=== PATIENT | female | born 2000 | race Caucasian/White ===

== ENCOUNTER → 2023-10-21 12:02 | Outpatient (BNVA) | payer BC, MEDICAID, SELFPAY | PROVIDERS: Visit Provider Obstetrics & Gynecology | DX: Z34.90 Encounter for supervision of normal pregnancy, unspecified, unspecified trimester | CPT/HCPCS: 82950; 84315 ==

== ENCOUNTER → 2023-10-28 13:19 | Outpatient (BNVA) | payer BC, MEDICAID, SELFPAY | PROVIDERS: Visit Provider Obstetrics & Gynecology | DX: Z34.93 Encounter for supervision of normal pregnancy, unspecified, third trimester (principal) | CPT/HCPCS: 76816 ==

== ENCOUNTER → 2023-12-15 07:45 | Outpatient (BNVA) | payer BC, MEDICAID, SELFPAY | PROVIDERS: Visit Provider Obstetrics & Gynecology | DX: Z34.90 Encounter for supervision of normal pregnancy, unspecified, unspecified trimester (principal) | CPT/HCPCS: 84315; 87081 ==

== ENCOUNTER 2024-01-03 05:05 | Inpatient (IN) | payer BC, MEDICAID, SELFPAY ==
[2024-01-03] VITALS (30 sets, daily range): BP systolic 91–137; BP diastolic 51–87; PULSE 53–101; RESP 16–18; TEMP 36.7–36.9; O2SAT 96; BMI 28.0
--- NOTE | 2024-01-03 05:10 | P.HP_ITS ---
Providers/Chief Complaint 2 Admitting Physician: Abdulaziz Day MD Primary MORTAR WORKER: Abdulaziz Day MD Primary Care Provider: Abdulaziz Day MD Chief Complaint: contractions HPI MORTAR WORKER History of Present Illness 23 y.o. EDC January 06, 2024 At 39 w 4 d Presented to L&D c/o painful uterine contractions No complications No bleeding, fluid leakage + active movements h/o x one, uncomplicated; 7 lbs 4 oz; male Present Details : 2 Para: 1 Labs Rubella: Non-Immune RPR: Negative GBS: Negative Medications/Allergies Home Medications Medication Instructions Recorded Confirmed Last Taken Type docosahexaenoic acid 200 mg 200 mg PO DAILY 09/25/23 01/03/24 01/02/24 History capsule ( DHA) Allergies Allergy/AdvReac Type Severity Reaction Status Date / Time No Known Allergies Allergy Verified 01/03/24 05:40 PFSH MORTAR WORKER 2 PFSH: Medical History Moderate tobacco use disorder Social History Smoking and tobacco/nicotine status: current every day tobacco/nicotine user Personal Safety: Do you feel safe at home: Yes Victim of physical abuse: No Victim of emotional abuse: No Victim of sexual abuse: No Would you like help information on resources?: No History History History 2 2 Term 1 0 Miscarriages/Ectopic 0 Living Children 1 Care SARAH Calculator 2 Estimated Delivery Date Method Current WG Current Estimate 01/06/24 LMP (Certain) 39w 6d Other Estimates 01/09/24 Ultrasound #1 39w 3d Vitals/I&O/Wt Last Vital Signs Temp 98.4 F 01/04/24 12:40 Pulse 79 01/04/24 12:40 Resp 17 01/04/24 12:40 BP 112/71 01/04/24 12:40 Pulse Ox 98 01/04/24 12:40 O2 Del Method Room Air 01/04/24 12:30 Weight last 48 hrs Weight 190 lb Physical Exam 2 Narrative: Weight 138 lbs; 5?2? VS normal General awake, alert Lungs: clear Cor: RRR Cervix: 5 cm / 75% / -2 Ext: no edema External monitor: regular RUST heart tracing good variability, + accelerations Data 01/04/24 02:00 Results Labs OB ([facility]): 2 Obstetrics US 10/28/23 Blood Type A Positive 01/03/24 Antibody Screen Negative 01/03/24 Hct 35.9 % (36-47) L 01/04/24 Hgb 11.70 g/dL (11.27-16.99) 01/04/24 Rho(D) Type Rh positive 01/03/24 Plt Count 244 10^3/cmm (157-399) 01/04/24 Glucose 1 Hr 50 gm 109 mg/dL (85-140) 10/21/23 A&P Assessment and plan (1) : 39 w 4 d Active labor Plan admit Fetus reassuring Expectant mx Qualifiers: Weeks of gestation: 25 weeks Qualified Code(s): Z3A.25 - 25 weeks gestation of Attestations 2 Medical Necessity Statement*: patient at 39 w 4 d, with active labor Coding Level of Care Code Acute Code for Chg Fwd Diagnoses 25 weeks gestation of Z3A.25 Weeks of gestation: 25 weeks Time Spent (min) 30
[2024-01-03 05:34] LABS: Basophils # 0.1 10^3/uL (0.0-0.1); Basophils % 0.4 %; Eosinophils # 0.1 10^3/uL (0.0-0.8); Eosinophils % 0.5 %; Hematocrit 37.8 % (36-47); Lymphocytes % 14.7 %; Mean Corpuscular HGB Conc 33.1 g/dL (30-55); Mean Corpuscular Hemoglobin 29.8 pg (27-33); Mean Corpuscular Volume 90.2 fl (85-98); Mean Platelet Volume 10.9 fL (7.4-10.4); Monocytes # 0.5 10^3/uL (0.2-0.9); Monocytes % 3.9 %; Neutrophils # 10.92 10^3/uL (1.8-7.7); Neutrophils % 79.7 %; Nucleated Red Blood Cells % 0 %; Platelet Count 258 10^3/cmm (157-399); Red Blood Count 4.19 10^6/uL (3.85-5.65); Red Cell Distribution Width 13.5 % (12.1-15.1); White Blood Count 13.71 10^3/uL (3.29-11.43)
[2024-01-03] MEDS: lidocaine 2% INJ 20 mL INJECTION (08:30)
[2024-01-03] MEDS: oxytocin 30 UNIT/500 ML BAG 600 UNIT IV (08:34)
--- NOTE | 2024-01-03 09:15 | PM.DELIVERY ---
Delivery Note: Date of delivery: January 03, 2024 Pre-delivery diagnoses: 39 w 4 d active labor Post-delivery diagnoses: 39 w 4 d active labor vaginal delivery repair of second-degree perineal laceration Procedure: vaginal delivery repair of second-degree perineal laceration Op report anesthesia: None Delivering Physician: Abdulaziz Day MD Estimated blood loss (mL): 300 Findings: , vigorous infant Cord gases obtained Normal placenta and cord No episiotomy Second-degree perineal laceration repaired EBL: 300 cc No complications Pre-Delivery Course: normal labor course Delivery: vaginal Post-Delivery Status: good History History History 2 Term 1 0 Miscarriages/Ectopic 0 Living Children 1 A&P Assessment and plan (1) Vaginal delivery: Coding Level of Care Code Acute Code for Chg Fwd Diagnoses Vaginal delivery O80 Time Spent (min) 90
[2024-01-03] MEDS: PRENATAL VIT NO.130/IRON/FOLIC 1 EACH TABLET PO (10:59)
[2024-01-03] MEDS: ibuprofen 800 mg tablet PO ×2 (10:59→21:56)
--- NOTE | 2024-01-03 14:45 | PC.NURSE ---
1445 MOVED TO OB 7
[2024-01-03] MEDS: acetaminophen 325 mg Tablet 650 MG PO (19:12)
[2024-01-04 02:26] LABS: Hematocrit 35.9 % (36-47); Mean Corpuscular HGB Conc 32.6 g/dL (30-55); Mean Corpuscular Hemoglobin 29.6 pg (27-33); Mean Corpuscular Volume 90.9 fl (85-98); Mean Platelet Volume 11.2 fL (7.4-10.4); Platelet Count 244 10^3/cmm (157-399); Red Blood Count 3.95 10^6/uL (3.85-5.65); Red Cell Distribution Width 13.5 % (12.1-15.1); White Blood Count 14.03 10^3/uL (3.29-11.43)
[2024-01-04 04:08] VITALS: BP 120/77; PULSE 55; RESP 16; TEMP 36.7; O2SAT 97
[2024-01-04] MEDS: ibuprofen 800 mg tablet PO (09:08)
[2024-01-04] MEDS: docusate sodium 100 mg Capsule PO (09:08)
[2024-01-04] MEDS: PRENATAL VIT NO.130/IRON/FOLIC 1 EACH TABLET PO (09:08)
[2024-01-04 09:11] VITALS: BP 118/71; PULSE 73; RESP 16; TEMP 36.6; O2SAT 99
[2024-01-04 12:30] VITALS: BP 112/71; PULSE 79; RESP 17; TEMP 36.9; O2SAT 98
[2024-01-04 12:40] VITALS: BP 112/71; PULSE 79; RESP 17; TEMP 36.9; O2SAT 98
--- NOTE | 2024-01-04 12:55 | P.DS_ITS ---
Discharge Providers DRESSING ROOM ATTENDANT Date of Admission: 01/03/24 05:05 Date of Discharge: 01/04/24 Attending Provider at Admission: Abdulaziz Day MD Attending Provider at Discharge: Abdulaziz Day MD Consults: none Primary DRESSING ROOM ATTENDANT: Abdulaziz Day MD Primary Care Provider: Abdulaziz Day MD Diagnoses at Discharge Discharge Diagnosis (1) Vaginal delivery: Details from hospital stay: patient presented at 39 w 4 d with active labor patient proceeded to deliver vaginally without any complications had repair of second-degree perineal laceration there were no complications patient was discharged to home on the first day Status: Acute Reason for Visit Reason for Visit: contractions Brief History: 23 y.o. EDC January 06, 2024 At 39 w 4 d Presented to L&D c/o painful uterine contractions Hospital Course Hospital Course patient presented at 39 w 4 d with active labor patient proceeded to deliver vaginally without any complications had repair of second-degree perineal laceration there were no complications patient was discharged to home on the first day Information Peripartum Data: Infant Delivery Method: Vaginal Laceration description: Perineal - 2nd Degree Episiotomy description: None complications: none Physical Exam Narrative: afebrile, VS normal comfortable, awake, alert Abd: soft, nontender. fundus firm Ext: no edema; nontender History History History 2 Term 1 0 Miscarriages/Ectopic 0 Living Children 1 Discharge Data Studies Completed and Pending Pending at discharge Category Date Time Status Retype for Patiets ABO/Rh Routine Lab 01/03/24 05:32 Ordered Laboratory Results WBC 14.03 10^3/uL (3.29-11.43) H 01/04/24 02:00 RBC 3.95 10^6/uL (3.85-5.65) 01/04/24 02:00 Hgb 11.70 g/dL (11.27-16.99) 01/04/24 02:00 Hct 35.9 % (36-47) L 01/04/24 02:00 MCV 90.9 fl (85-98) 01/04/24 02:00 MCH 29.6 pg (27-33) 01/04/24 02:00 MCHC 32.6 g/dL (30-55) 01/04/24 02:00 RDW 13.5 % (12.1-15.1) 01/04/24 02:00 Plt Count 244 10^3/cmm (157-399) 01/04/24 02:00 MPV 11.2 fL (7.4-10.4) H 01/04/24 02:00 Neut % (Auto) 79.7 % 01/03/24 05:20 Lymph % (Auto) 14.7 % 01/03/24 05:20 Garrard % (Auto) 3.9 % 01/03/24 05:20 Eos % (Auto) 0.5 % 01/03/24 05:20 Baso % (Auto) 0.4 % 01/03/24 05:20 Neut # (Auto) 10.92 10^3/uL (1.8-7.7) H 01/03/24 05:20 Lymph # (Auto) 2.0 10^3/uL (0.8-4.8) 01/03/24 05:20 Garrard # (Auto) 0.5 10^3/uL (0.2-0.9) 01/03/24 05:20 Eos # (Auto) 0.1 10^3/uL (0.0-0.8) 01/03/24 05:20 Baso # (Auto) 0.1 10^3/uL (0.0-0.1) 01/03/24 05:20 Nucleated RBC % (auto) 0 % 01/03/24 05:20 Nucleated RBCs # 0.0 /100WBC 01/03/24 05:20 Blood Type A Positive 01/03/24 05:20 Rho(D) Type Rh positive 01/03/24 05:20 Antibody Screen Negative 01/03/24 05:20 Procedures Performed vaginal delivery repair of second-degree perineal laceration Vitals Last Vital Signs Temp 98.4 F 01/04/24 12:40 Pulse 79 01/04/24 12:40 Resp 17 01/04/24 12:40 BP 112/71 01/04/24 12:40 Pulse Ox 98 01/04/24 12:40 O2 Del Method Room Air 01/04/24 12:30 Results Labs OB ([facility]): Obstetrics US 10/28/23 Blood Type A Positive 01/03/24 Antibody Screen Negative 01/03/24 Hct 35.9 % (36-47) L 01/04/24 Hgb 11.70 g/dL (11.27-16.99) 01/04/24 Rho(D) Type Rh positive 01/03/24 Plt Count 244 10^3/cmm (157-399) 01/04/24 Glucose 1 Hr 50 gm 109 mg/dL (85-140) 10/21/23 Discharge Plan Discharge Patient Disposition: Home Condition: Stable Prescriptions: Continued DHA 200 mg capsule 200 mg PO DAILY Discharge Orders: Discharge Order (Routine); Ordered 01/04/24 Ordered By: Abdulaziz Day Referrals: Abdulaziz Day MD [Primary Care Provider] - 6 Weeks (Please call Friday to set up your follow up appointment with Dr. Day for 6 Weeks ) Discharge Diet: Usual diet Discharge Activity: Increase activity as tolerated Patient Instructions: Depression (DC), Preeclampsia and Eclampsia After Delivery (GEN), Hemorrhage (DC), OB Discharge Report, OB Food/Drug Interaction Guide, Opioid Safety, OB Home Care, OB Vaginal Deliveries - [facility], Abnormal Bleeding Discharge Attestations DRESSING ROOM ATTENDANT Time Spent in Discharge Care*: less than 30 min Coding Level of Care Code Acute Code for Chg Fwd Diagnoses Vaginal delivery O80 Time Spent (min) 20
== END 2024-01-04 12:40 | disposition home or self-care (01) | DRG 807 ==
LOC: OPOB 06:58 → OBGYN 06:58
PROVIDERS: Admitting Provider Obstetrics & Gynecology; PCP Obstetrics & Gynecology; Visit Provider Obstetrics & Gynecology
DX: O99.334 Smoking (tobacco) complicating childbirth (principal); Z37.0 Single live birth; F17.200 Nicotine dependence, unspecified, uncomplicated; Z3A.39 39 weeks gestation of pregnancy; O70.1 Second degree perineal laceration during delivery
CPT/HCPCS: 36415; 59025; 59409; 85025; 85027; 86850; 86900; 99211; J2590